=== PATIENT | female | born 1995 | race Caucasian/White ===

== ENCOUNTER 2021-10-25 12:04 | Emergency (ER) | payer SELFPAY ==
[~2021-10-25] VITALS: Ht 160 cm; Wt 64.4 kg
[2021-10-25 12:11] VITALS: BP 137/109
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
[2021-10-25 15:19] VITALS: BP 123/88
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
--- NOTE | 2021-10-25 15:19 | NUR ---
NO NURSING INTERVENTIONS PROVIDED
== END 2021-10-25 15:19 | disposition home or self-care (01) ==
LOC: MED 12:04
DX: S05.12XA Contusion of eyeball and orbital tissues, left eye, initial encounter (principal); S70.01XA Contusion of right hip, initial encounter; S50.311A Abrasion of right elbow, initial encounter; Z88.0 Allergy status to penicillin; Y04.2XXA Assault by strike against or bumped into by another person, initial encounter; Y93.89 Activity, other specified; Y92.89 Other specified places as the place of occurrence of the external cause; Y99.8 Other external cause status
CPT/HCPCS: 70150; 99283